=== PATIENT | female | born 1965 | race Caucasian/White ===

== ENCOUNTER 2016-06-25 07:36 | Day surgery (SDC) | payer OTHER ==
[2016-05-28 14:04] VITALS: BMI 43.0
--- NOTE | 2016-05-28 14:36 | PAT Medication Instructions ---
Service Date May 28, 2016. Current Home Medication List Ipratropium-Albuterol (Combivent Respimat), 1 PUFFS INH BID Levothyroxine Sodium (Synthroid), 200 MCG PO QAM Loperamide Hcl (Imodium A-D), 2 MG PO QAM [Sinus Med], 1 TAB PO QAM Medication Instructions For Your Scheduled Surgery - Hold the following medications the morning of surgery: Loperamide Hcl (Imodium A-D), 2 MG PO QAM Sinus Med 1 TAB PO QAM - Take the following medications the morning of surgery with a sip of water: Levothyroxine Sodium (Synthroid), 200 MCG PO QAM Ipratropium-Albuterol (Combivent Respimat), 1 PUFFS INH BID (bring with you on day of surgery) - Take the following medications as scheduled the night before surgery: Ipratropium-Albuterol (Combivent Respimat), 1 PUFFS INH BID If you have any questions please call us at [phone] or [phone] ( [place]) or [phone]
[2016-05-28 15:25] LABS: BASO % 0.2 %; BASO ABS # 0.02 K/uL (0-0.2); COMPLETE YES; EOS % 2.1 %; HEMATOCRIT 47.8 % (37-47); IG% 0.2 %; LYMPH % 24.5 %; LYMPH ABS # 2.38 K/uL (1.2-3.4); MEAN CORPUSCULAR HEMOGLOBIN 33.1 pg (25-34); MEAN CORPUSCULAR HGB CONC 34.1 g/dl (32-36); MEAN PLATELET VOLUME 9.9 fL (7.4-10.4); MONO % 9.2 %; NEUT % 63.8 %; PLATELET COUNT 251 K/uL (130-400); RED BLOOD COUNT 4.93 M/uL (4.2-5.4); WHITE BLOOD COUNT 9.71 K/uL (4.8-10.8)
[2016-05-28 15:36] LABS: INR 0.9 (0.9-1.1); PROTHROMBIN TIME (PATIENT) 9.8 SECONDS (9.0-12.0)
[2016-05-28 15:42] LABS: BUN/CREATININE RATIO 12.4 (10-20); CALCIUM 9.5 mg/dl (8.5-10.1); CREATININE 0.62 mg/dl (0.60-1.20); POTASSIUM 4.1 mmol/L (3.5-5.1)
--- NOTE | 2016-06-24 21:05 | HISTORY & PHYSICAL EXAMINATION ---
DATE OF ADMISSION: 06/25/2016 CHIEF COMPLAINT: Chronic right shoulder pain. HISTORY OF PRESENT ILLNESS: This is a 51-year-old female patient of Dr. Bullock'david complaining of chronic right shoulder pain. She had an injury at work on 02/09/2015. She failed conservative treatment including physical therapy, intra-articular injections. MRI confirmed impingement, AC arthritis and a rotator cuff tear. The patient wishes to proceed with a right shoulder arthroscopic subacromial decompression, distal clavicle excision, debridement versus rotator cuff repair. PAST MEDICAL HISTORY: Heart murmur, COPD, sleep apnea with the use of CPAP, hypothyroidism, obesity, dental issues, kidney stones. SOCIAL HISTORY: Half pack per day smoker x20 years. She is a 1-qwkbp-uda-week drinker. PAST SURGICAL HISTORY: Bunionectomy, rhinoplasty, bilateral shoulder surgery, kidney stone surgery. REVIEW OF SYSTEMS: The patient complains of chronic right shoulder pain and weakness. Otherwise, denies any shortness of breath, chest pain, nausea, vomiting or any joint complaints. FAMILY HISTORY: Noncontributory. MEDICATIONS: Include levothyroxine, Combivent and hcpu-bhw-[id number] anti-inflammatories as needed. ALLERGIES: SUDAFED AND TRAMADOL. PHYSICAL EXAMINATION: GENERAL: Well-developed, well-nourished 51-year-old female in no acute distress. She is alert and oriented x3 and pleasant. HEENT: Normocephalic, atraumatic. Extraocular motions are intact. Pupils are equal and reactive to light. HEART: Regular rate and rhythm, no murmurs appreciated. LUNGS: Clear. ABDOMEN: Soft, nontender, bowel sounds present. UPPER EXTREMITIES: Right shoulder reveals full range of motion with 4+/5 strength. She has positive impingement maneuvering. NEUROLOGIC: Neurovascularly, she is intact in her right upper extremity with AC joint tenderness. DIAGNOSES: Right shoulder impingement, acromioclavicular joint arthritis, rotator cuff tear. She also has a history of a heart murmur, chronic obstructive pulmonary disease, sleep apnea with the use of CPAP, hypothyroidism, obesity, dental issues, and kidney stones. PLAN: The patient was advised of her diagnosis. Indications, risks, benefits, and postop course have all been reviewed. The patient wishes to proceed with a right shoulder arthroscopic subacromial decompression, distal clavicle excision and rotator cuff debridement versus repair.
[~2016-06-25] VITALS: Ht 154.9 cm; Wt 104.1 kg
[~2016-06-25 07:36] MED LIST: CEFAZOLIN 2000 MG/60 ML D5W 60 ML IV SCH; IPRA1AER2 INH; LACTATED RINGER'S 1000ML IV SCH; LACTATED RINGER'S 500 ML IV SCH; LEVO200T PO; LOPE-5 PO; SINUS MED PO
[2016-06-25 07:50] VITALS: BP 134/90; PULSE 85; TEMP 36.7; O2SAT 95; Ht 154.9 cm; Wt 104.1 kg
[2016-06-25] MEDS ORDERED: BUPIVACAINE/EPINEPHRINE 0.25% 1:200,000 30 ML VIAL ONE (08:04)
[2016-06-25] MEDS ORDERED: DEXAMETHASONE SOD INJ 4 MG/ML VIAL ONE ×2 (08:05→08:28)
[2016-06-25] MEDS ORDERED: PROPOFOL IV EMULSION 10 MG/ML 20 ML VIAL IV ONE (08:28)
[2016-06-25] MEDS ORDERED: ROCURONIUM BROMIDE 10 MG/ML 5 ML VIAL ONE (08:28)
[2016-06-25] MEDS ORDERED: NEOSTIGMINE METHYLSULFATE 5 MG/5 ML SYR ONE (08:28)
[2016-06-25] MEDS ORDERED: MIDAZOLAM HCL 1 MG/ML 2ML VIAL ONE (08:28)
[2016-06-25] MEDS ORDERED: LIDOCAINE HCL 2% 2 ML VIAL (20MG/ML) ONE (08:28)
[2016-06-25] MEDS ORDERED: ONDANSETRON INJ 2 MG/ML 2 ML VIAL ONE (08:28)
[2016-06-25] MEDS ORDERED: GLYCOPYRROLATE INJ 0.2 MG/ML VIAL ONE ×2 (08:28→11:43)
[2016-06-25] MEDS ORDERED: FENTANYL CITRATE INJ 50 MCG/1 ML 2 ML VIAL ONE (08:28)
[2016-06-25] MEDS ORDERED: ATROPINE SULFATE 0.1 MG/ML 5ML SYR IV PRN (09:30)
[2016-06-25] MEDS ORDERED: PROMETHAZINE HCL INJ 6.25 MG in SODIUM CHLORIDE 0.9% 50ML 50 ML IV PRN (09:30)
[2016-06-25] MEDS ORDERED: EpHEDrine SULFATE INJ 50 MG/ML AMP IV PRN (09:30)
[2016-06-25] MEDS ORDERED: ONDANSETRON INJ 2 MG/ML 2 ML VIAL IV PRN (09:30)
--- NOTE | 2016-06-25 10:41 | History & Physical Bridge Note ---
H&P Re-Evaluation Bridge Note: I have examined the patient, reviewed the History & Physical and in the interval since the performance of the History & Physical I have noted the following changes of clinical significance: No changes noted
[2016-06-25] MEDS ORDERED: SODIUM CHLORIDE 0.9% 1000ML 1,000 ML IV SCH (13:07)
[2016-06-25] MEDS ORDERED: OXYC-57 PO (13:09)
--- NOTE | 2016-06-25 13:09 | [facility] Operative Report ---
Operative Report Operative Date Jun 25, 2016. Pre-Operative Diagnosis Right shoulder impingement, acromioclavicular joint arthritis, rotator cuff tear,s/p prior open repair,recurrent injury. Post-Operative Diagnosis same,subdeltoid subacromial bursitis and adhesions,rtc tendinopathy Procedure(s) Performed right shoulder arthroscopic rotator cuff repair with decompression and distal clavicle excision and extensive debridement Surgeon Dr. Bullock Longwall Machine Operator Helper Surgeon(s) AMPARO Garcia Estimated Blood Loss 5 ml Findings as above rotator cuff tendinopathy partial undersurface tear Specimens none per surgeon Anesthesia general and regional Complication(s) None Disposition Recovery Room / PACU Indications reinjury chronic pain h/o prior rtc tear and mri with rotator cuff tear I attest to the content of the Intraoperative Record and any orders documented therein. Any exceptions are noted below.
--- NOTE | 2016-06-25 13:12 | Discharge Instructions ---
Discharge Instructions Admission Reason for Admission: Right Shoulder Impingement Syndrome, Osteoarthriti Discharge Discharge Diagnosis / Problem: Right rotator cuff repair, clvicle excision, decompression Discharge Goals Goal(s): Improve function Activity Recommendations Activity Limitations: as noted below . Instructions / Follow-Up Instructions / Follow-Up See printed post op instruction sheet. See printed home exercise sheet. Pain meds as ordered. Begin PT next week, make appt for PT where convenient and take prescription to first visit. Follow up with Dr. Bullock 12-14 days post op, call [phone] to confirm appt. Current Hospital Diet Patient's current hospital diet: Discharge Diet Recommended Diet: Regular Diet Procedures Procedures Performed: Right Shoulder Arthroscopic Subacromial Decompression, Distal Clavicle Excision , Debridement, Rotator Cuff Repair Pending Studies Studies pending at discharge: no Medical Emergencies . Who to Call and When: Medical Emergencies: If at any time you feel your situation is an emergency, please call 911 immediately. . Non-Emergent Contact Non-Emergency issues call your: Primary Care Provider . "Provider Documentation" section prepared by Artemio Roberson. VTE Core Measure Inpt VTE Proph given/why not?: SCD's
[2016-06-25] MEDS ORDERED: OXYCODONE/ACETAMINOPHEN 5-325 TAB PO PRN ×2 (13:15)
[2016-06-25] MEDS ORDERED: NURSING VERBAL MED ORDER ONE (13:15)
[2016-06-25] MEDS: FENTANYL CITRATE INJ 50 MCG/1 ML 2 ML VIAL IV PRN ×5 (13:16→13:51)
[2016-06-25 13:23] VITALS: PULSE 92; O2SAT 91
[2016-06-25] MEDS ORDERED: ALBUT/IPRATROP 3MG/0.5MG NEB 3 ML VIAL INH STA (13:23)
--- NOTE | 2016-06-25 14:10 | OPERATIVE REPORT ---
DATE OF OPERATION: 06/25/2016 INDICATION FOR PROCEDURE: The patient is a 51-year-old female who presents with chronic right shoulder pain. She had a work related injury. She has history of previous open rotator cuff repair and decompression type surgery in the past. She has increased pain since the injury. She has had extensive conservative management therapy. Continues have chronic pain. She had an MRI which demonstrated what appears to be a high grade undersurface tear of the rotator cuff and possibly full thickness rotator cuff tear. It looks like she has a satisfactory decompression which has hypertrophic AC joint causing impingement and she has inflammation in the AC joint, some bone edema around the AC joint consistent with AC joint arthritis. PREOPERATIVE DIAGNOSES: Right shoulder work related injury with rotator cuff tear and impingement from preexisting AC joint arthritis with some inflammation in the AC joint contributing to pain syndrome. Status post prior open rotator cuff repair and decompression. POSTOPERATIVE DIAGNOSES: High grade undersurface delaminating partial rotator cuff tear of the supraspinatus and infraspinatus with rotator cuff tendinopathy with intact superficial portion of rotator cuff repair with tendinopathy of the subscapularis tendon partial intra-articular tearing with tendinopathy of the supraspinatus and infraspinatus with chronic subacromial bursitis, subdeltoid subacromial bursal adhesions and recurrent impingement due to recurrent spurs of acromion and impingement due to hypertrophic acromioclavicular joint arthritis. PROCEDURE: Right shoulder arthroscopic rotator cuff repair, subacromial decompression, distal clavicle excision, extensive debridement. SURGEON: Dr. Bullock. RN PERITONEAL DIALYSIS: Artemio Roberson PA-C. ANESTHESIA: Regional block general. OPERATION AND FINDINGS: OPERATIVE PROCEDURE: The patient was taken to the operating room, anesthetized with regional and/or general anesthetic. [facility] 70 degree beach chair position. Right shoulder was examined under anesthesia. She had good range of motion. Right shoulder was sterilely prepped and draped with ChloraPrep. Arthroscopy was started with a posterior arthroscopy portal in the soft spot, the anterior portal in the rotator interval anterior to the AC joint and a lateral portal in the subacromial space. Intra-articular findings demonstrated that she had intact articular surface of the humeral head and the glenoid. Labrum was intact. Biceps anchor was intact. Biceps tendon was intact. Subscapularis had striations in the tendon consistent with tendinopathy and some upper third tendinopathy of the subscapularis tendon. The supraspinatus tendon had a large delaminated undersurface partial tear that extended into the infraspinatus tendon and was retracted more posterior. There was delamination between the undersurface flap and superior flap with intratendinous degeneration. The superficial repair was all intact, all the sutures were in the tissue and intact to bone with no evidence of any full thickness cuff tear. In the subacromial space was clearly intact rotator cuff. There was a thickened chronic subacromial scar and bursa and subdeltoid adhesions underneath the previous open scar. The acromion had some increased bone spurs in the anterior lip of the acromion making it more of a type 2 shape and then there were 2 spurs that were forming on the lateral side of the acromion process and then there were larger inferior acromioclavicular joint spurs at the AC joint area causing impingement. She had hypertrophy of the AC joint with arthritic changes in the AC joint. The distal clavicle was hanging very low, well below the prior acromioplasty contributing to cuff impingement. In the glenohumeral joint space, I debrided the undersurface of the rotator cuff supraspinatus. We did identify the anterior cabled cuff and posterior cable to be intact. The subscapularis was debrided in the area of the partial tearing tendinopathy. The tissue between the delaminated inferior flap and the upper intact fibers of the rotator cuff was debrided to stimulate a healing response. Then in the subacromial space a thorough bursectomy was performed removing all the pathological scarred bursa tissue, releasing all the subdeltoid adhesions with the radiofrequency ablator. I ablated the bursa and scar tissue on the undersurface of the acromion revealing the acromial spurs and these were planed down to a flat undersurface of the acromion with a type 1 flat shape to the acromion. The acromial facet spurs were planed up to in line with the remainder of the acromion process and 1 cm of distal clavicle was resected using a bur with both lateral and anterior portal and 30 and 70 degree arthroscope to visualize resection up to the superior and posterior capsule which was preserved for stability. All debris was irrigated out of the subacromial space. The arthroscope was placed back into the glenohumeral joint space. Arthroscope working cannula was placed anteriorly. A grasper was placed on the tendon and was advanced anteriorly and laterally and then a spinal needle was placed through the delaminated tendon first through the superficial tendon and then through the delaminated tendon in a percutaneous fashion. This captured the tendon out to length. Then I passed another PDS suture through, retrieved it through the anterior cannula, tied a #2 ultrabraid suture to that and retrograde passed that through the rotator cuff tissue. We did one more #2 ultrabraid suture medial to the prior suture in a similar fashion after placing traction on initial suture to get the appropriate length. The needle was percutaneously placed through the cable of the anterior rotator cuff just adjacent to the biceps tendon and each individual sutures were passed through that cable so that the partial tear could be advanced anteriorly and laterally and be in continuity with the cable. These were all percutaneously placed with the spinal needle. After we assessed that to be appropriate with traction on the sutures then the arthroscopic instrumentation was advanced back into the subacromial space. The sutures were tied with Chetan sliding locking knot 3 reverse half hitches on alternating posts repairing the rotator cuff. The portal sites were then closed with nylon sutures. Sterile dressings were applied and a sling immobilizer. AMPARO Garcia was my financial administrative assistant and functioned as financial administrative assistant for the entire procedure. He assisted in patient positioning, prepping, draping, arm positioning, instrument management, suture management during the repair and performed skin closure and will participate in postoperative care of the patient. I attest to the content of the Intraoperative Record and any orders documented therein. Any exceptions are noted below. VENUTRA
[2016-06-25 14:55] VITALS: BP 122/78; PULSE 83; TEMP 36.8; O2SAT 92
[2016-06-25 15:25] VITALS: BP 143/80; PULSE 86; TEMP 36.6; O2SAT 92
[2016-06-25 15:55] VITALS: BP 141/80; PULSE 85; TEMP 36.6; O2SAT 93
--- NOTE | 2016-06-25 16:27 | Anesthesiology Progress Note ---
Anesthesia Post Op Note Date & Time Jun 25, 2016 at 16:28 Vital Signs Pain Intensity: 6 Vital Signs Past 12 Hours Date Time Temp Pulse Resp B/P Pulse Ox O2 Delivery O2 Flow Rate FiO2 06/25/16 15:55 36.6 85 20 141/80 93 Room Air 06/25/16 15:25 36.6 86 20 143/80 92 Nasal Cannula 2 06/25/16 14:55 36.8 83 16 122/78 92 Nasal Cannula 2 06/25/16 14:45 86 14 142/75 92 Nasal Cannula 1 06/25/16 14:44 78 06/25/16 14:44 78 90 06/25/16 14:43 142/75 06/25/16 14:42 139/88 06/25/16 14:33 129/88 06/25/16 14:30 36.5 84 14 136/84 92 Room Air 06/25/16 14:29 78 15 87 06/25/16 14:29 80 15 06/25/16 14:28 136/84 06/25/16 14:26 83 17 06/25/16 14:26 82 17 89 06/25/16 14:23 129/98 06/25/16 14:21 85 18 06/25/16 14:21 86 18 90 06/25/16 14:18 140/95 06/25/16 14:16 80 9 90 06/25/16 14:16 80 9 06/25/16 14:13 149/78 06/25/16 14:11 88 15 06/25/16 14:11 88 15 89 06/25/16 14:09 148/88 06/25/16 14:08 150/102 06/25/16 14:06 80 14 84 06/25/16 14:06 82 14 06/25/16 14:03 149/86 06/25/16 14:01 86 13 91 06/25/16 14:01 86 13 06/25/16 13:58 147/86 06/25/16 13:56 84 12 91 06/25/16 13:56 82 12 06/25/16 13:53 135/86 06/25/16 13:51 79 15 91 06/25/16 13:51 79 15 06/25/16 13:50 84 16 93 06/25/16 13:50 84 16 06/25/16 13:48 154/89 06/25/16 13:45 87 13 93 06/25/16 13:45 87 13 06/25/16 13:43 149/81 06/25/16 13:40 83 17 06/25/16 13:40 83 17 94 06/25/16 13:38 151/84 06/25/16 13:35 85 26 92 06/25/16 13:35 87 26 06/25/16 13:32 174/101 06/25/16 13:30 87 18 96 06/25/16 13:30 89 18 06/25/16 13:29 161/88 06/25/16 13:28 152/102 06/25/16 13:25 91 13 06/25/16 13:25 90 13 96 06/25/16 13:23 92 18 91 Mask 10.0 06/25/16 13:23 153/98 06/25/16 13:21 169/94 06/25/16 13:20 98 14 93 06/25/16 13:20 98 14 06/25/16 13:19 /95 06/25/16 13:15 97 19 88 06/25/16 13:15 97 19 06/25/16 13:13 173/93 06/25/16 13:10 101 20 85 06/25/16 13:10 36.5 104 16 181/99 90 Mask 10 06/25/16 13:10 102 20 06/25/16 07:50 36.7 85 20 134/90 95 Room Air Notes Mental Status: alert / awake / arousable, participated in evaluation Pt Amnestic to Procedure: Yes Nausea / Vomiting: adequately controlled Pain: adequately controlled Airway Patency, RR, SpO2: stable & adequate BP & HR: stable & adequate Hydration State: stable & adequate Anesthetic Complications: no major complications apparent Block working well in pacu except for small area spared at [facility]
== END 2016-06-25 16:29 | disposition home or self-care (01) ==
LOC: C.ACU 07:36
PROVIDERS: ATTEND Orthopaedic Surgery Sports Medicine
DX: M75.101 Unspecified rotator cuff tear or rupture of right shoulder, not specified as traumatic (principal); M75.41 Impingement syndrome of right shoulder; M19.019 Primary osteoarthritis, unspecified shoulder; J44.9 Chronic obstructive pulmonary disease, unspecified; R01.1 Cardiac murmur, unspecified; N20.0 Calculus of kidney; E03.9 Hypothyroidism, unspecified; G47.30 Sleep apnea, unspecified; F17.210 Nicotine dependence, cigarettes, uncomplicated; Z99.89 Dependence on other enabling machines and devices; Z98.890 Other specified postprocedural states; Z88.8 Allergy status to other drugs, medicaments and biological substances